=== PATIENT | male | born 1945 | race Asian ===

== ENCOUNTER 2017-01-28 12:59 | Outpatient (CLI) | payer OTHER, BC ==
[~2017-01-28 12:59] MED LIST: LEVO0.0218 PO; LISI10TA11 PO
[2017-01-28 13:31] LABS: PLATELET COUNT 264 K/uL (142-355)
[2017-01-28 14:09] LABS: POTASSIUM 4.1 mmol/L (3.6-5.2); SODIUM 140 mmol/L (136-145)
== END 2017-01-28 19:45 | disposition home or self-care (01) ==
LOC: LAB 12:59
PROVIDERS: Nurse Practitioner Family
DX: I10 Essential (primary) hypertension (principal); E78.4 Other hyperlipidemia; Z79.899 Other long term (current) drug therapy; Z51.81 Encounter for therapeutic drug level monitoring
CPT/HCPCS: 80053; 80061; 83036; 84439; 84443; 85027

== ENCOUNTER 2017-08-21 14:10 | Outpatient (CLI) | payer OTHER, BC ==
[2017-08-21 14:41] LABS: PLATELET COUNT 312 K/uL (142-355)
[2017-08-21 15:11] LABS: POTASSIUM 4.4 mmol/L (3.6-5.2)
== END 2017-08-21 15:10 | disposition home or self-care (01) ==
LOC: LAB 14:10
PROVIDERS: Nurse Practitioner Family
DX: Z79.899 Other long term (current) drug therapy (principal); E78.4 Other hyperlipidemia; I10 Essential (primary) hypertension; Z51.81 Encounter for therapeutic drug level monitoring
CPT/HCPCS: 80053; 80061; 83036; 84436; 84443; 85027

== ENCOUNTER 2018-01-13 13:06 | Outpatient (CLI) | payer OTHER, BC ==
[2018-01-13 13:38] LABS: PLATELET COUNT 218 K/uL (142-355)
[2018-01-13 16:21] LABS: POTASSIUM 4.2 mmol/L (3.6-5.2); SODIUM 141.8 mmol/L (136-145)
== END 2018-01-13 19:50 | disposition home or self-care (01) ==
LOC: LAB 13:06
PROVIDERS: Nurse Practitioner Family
DX: Z79.899 Other long term (current) drug therapy (principal); Z51.81 Encounter for therapeutic drug level monitoring; E78.4 Other hyperlipidemia; I10 Essential (primary) hypertension
CPT/HCPCS: 80053; 80061; 83036; 84154; 84436; 84443; 85027

== ENCOUNTER 2018-05-26 15:54 | Outpatient (CLI) | payer OTHER, BC ==
[2018-05-26 16:24] LABS: PLATELET COUNT 242 K/uL (142-355)
[2018-05-26 16:48] LABS: POTASSIUM 4.5 mmol/L (3.6-5.2)
== END 2018-05-26 23:18 | disposition home or self-care (01) ==
LOC: LAB 15:54
PROVIDERS: Nurse Practitioner Family
DX: Z79.899 Other long term (current) drug therapy (principal); Z51.81 Encounter for therapeutic drug level monitoring; E78.4 Other hyperlipidemia; I10 Essential (primary) hypertension
CPT/HCPCS: 80053; 80061; 83036; 84436; 84443; 85027

== ENCOUNTER 2019-01-05 08:08 | Outpatient (CLI) | payer OTHER, BC ==
[~2019-01-05] VITALS: Ht 190.5 cm; Wt 83.0 kg
== END 2019-01-05 19:10 | disposition home or self-care (01) ==
LOC: NM 08:08
DX: R68.89 Other general symptoms and signs (principal); I51.3 Intracardiac thrombosis, not elsewhere classified
CPT/HCPCS: A9500; J2785

== ENCOUNTER 2021-01-22 07:37 | Outpatient (CLI) | payer OTHER | END 2021-01-22 22:46 | disposition home or self-care (01) | LOC: US 07:37 | PROVIDERS: ATTEND Nurse Practitioner Family | DX: Z13.6 Encounter for screening for cardiovascular disorders (principal); F17.210 Nicotine dependence, cigarettes, uncomplicated ==

== ENCOUNTER 2021-10-09 08:07 | Outpatient (CLI) | payer OTHER | END 2021-10-09 20:19 | disposition home or self-care (01) | LOC: RESP 08:07 | PROVIDERS: ATTEND Nurse Practitioner | DX: I10 Essential (primary) hypertension (principal); I35.1 Nonrheumatic aortic (valve) insufficiency ==

== ENCOUNTER 2023-04-05 08:23 | Emergency (ER) | payer OTHER ==
[~2023-04-05] VITALS: Ht 190.5 cm; Wt 79.8 kg
[2023-04-05 09:03] VITALS: BP 153/69; TEMP 97.7
== END 2023-04-05 09:04 | disposition home or self-care (01) ==
LOC: ED 08:23
DX: B02.9 Zoster without complications (principal); G54.2 Cervical root disorders, not elsewhere classified
CPT/HCPCS: 99282

== ENCOUNTER 2023-07-13 14:37 | Emergency (ER) | payer OTHER ==
[~2023-07-13] VITALS: Ht 190.5 cm; Wt 76.2 kg
[2023-07-13 15:54] VITALS: BP 131/59; TEMP 98.1
== END 2023-07-13 15:54 | disposition home or self-care (01) ==
LOC: ED 14:37
DX: J40 Bronchitis, not specified as acute or chronic (principal); J06.9 Acute upper respiratory infection, unspecified
CPT/HCPCS: 87635; 87651; 99282; U0003